=== PATIENT | male | born 1955 | race Caucasian/White ===

== ENCOUNTER → 2017-05-18 | Day surgery (SDC) | payer OTHER ==
[2017-05-07 11:05] VITALS: Ht 170.2 cm; Wt 77.3 kg
[~2017-05-18] VITALS: Ht 170.2 cm; Wt 77.3 kg
[~2017-05-18] MED LIST: BUPR-79 PO; SERT-234 PO
== END | disposition home or self-care (01) ==
LOC: EDSTATUS 09:00 → C.PAT 13:57
PROVIDERS: ATTEND Ophthalmology
DX: H26.9 Unspecified cataract (principal)

== ENCOUNTER → 2017-08-10 | Day surgery (SDC) | payer OTHER ==
[2017-07-16 09:57] VITALS: Ht 170.2 cm; Wt 77.3 kg
[~2017-08-10] VITALS: Ht 170.2 cm; Wt 77.3 kg
[~2017-08-10] MED LIST changes: +500ML BSS 0.3ML EPI 1:1000PF IRRIG ONE; +ACETAMINOPHEN 325 MG TAB PO PRN; +AMVISC PLUS 0.8ML SYRINGE INT OCU ONE; +ATROPINE SULFATE 0.1 MG/ML 5ML SYR IV PRN; +BRIMONIDINE TART 0.2% OP SOLN PER DROP CHARGE ONE; +BSS FLUSH ONE; +ENDOCOAT 0.85ML SYRINGE INT OCU ONE; +EpHEDrine SULFATE INJ 50 MG/ML AMP IV PRN; +EpINEphrine INJ 1MG/ML AMP 1 MG/ML AMP ONE; +LACTATED RINGER'S 1000ML 500 ML IV SCH; +LIDOCAINE 4% OP SOLN DROP CHARGE ONE; +LIDOCAINE 4% OP SOLN DROP CHARGE OPR SCH; +LIDOCAINE HCL 1% MPF 2 ML VIAL ONE; +MIDAZOLAM HCL 1 MG/ML 2ML VIAL ONE; +MOXIFLOXACIN OPH SOLN PER DROP CHARGE ONE; +ONDANSETRON INJ 2 MG/ML 2 ML VIAL IV PRN; +POVIDONE-IODINE OP SOLN 30 ML BTL ONE; +PROPARACAINE 0.5% OP SOLN PER DROP CHARGE OPR SCH; +TOBRAMYCIN/DEXAMETHASONE OPH OINT PER APPLN CHARGE ONE
[2017-08-10] MEDS: PHENYLEPHRINE HCL 2.5% OP SOLN PER DROP CHARGE OPR SCH ×2 (12:43→12:48)
[2017-08-10] MEDS: TROPICAMIDE 1% OP SOLN PER DROP CHARGE OPR SCH ×2 (12:44→12:49)
[2017-08-10] MEDS: CYCLOPENTOLATE HCL 1% OP SOLN PER DROP CHARGE OPR SCH ×2 (12:45→12:50)
[2017-08-10] MEDS: KETOROLAC 0.5% OP SOLN PER DROP CHARGE OPR SCH ×2 (12:46→12:51)
[2017-08-10] MEDS: MOXIFLOXACIN OPH SOLN PER DROP CHARGE OPR SCH ×2 (12:47→13:00)
--- NOTE | 2017-08-10 13:24 | History & Physical Bridge - [place] ---
H&P Re-Evaluation Bridge Note: I have examined the patient, reviewed the History & Physical and in the interval since the performance of the History & Physical I have noted the following changes of clinical significance: No changes noted
--- NOTE | 2017-08-10 14:23 | Discharge Instructions-SurgCtr ---
Discharge Instructions Date of Service Aug 10, 2017. Visit Reason for Visit: Cataract Right Eye Discharge Discharge Diagnosis / Problem: cataract right eye Discharge Goals Goal(s): Improve function Activity Recommendations Activity Limitations: per Instructions/Follow-up section Lifting Limitations: no more than 5 pounds Anesthesia . Post Anesthesia Instructions: If you have had General Anesthesia or IV Sedation: * Do not drive today. * Resume driving when surgeon permits. * Do not make important decisions or sign legal documents today. * Call surgeon for: 1. Temperature elevations greater than 101 degrees F. 2. Uncontrollable pain. 3. Excessive bleeding. 4. Persistent nausea and vomiting. 5. Medication intolerance (nausea, vomiting or rash). * For nausea and vomiting use only clear liquids such as: tea, soda, bouillon until nausea subsides, then gradually increase diet as tolerated. * If you have any concerns or questions, call your surgeon's office. If physician is unavailable and it is an emergency, call 911 or go to the nearest emergency room. . Instructions / Follow-Up Instructions / Follow-Up ACTIVITY RECOMMENDATIONS: * Light activities * You may walk outside, read, watch television. * Mild irritation and blurred vision are common for the first few days, redness around the white part of the eye is common. MEDICATIONS: Resume previous medications unless instructed otherwise by your surgeon. Eye drops (today and tomorrow): Polytrim - one drop in operative eye every 2 hours while awake Prednisolone 1% - one drop in operative eye every 2 hours while awake Prolensa - one drop operative eye 1 times daily SPECIAL CARE INSTRUCTIONS: * If any problems or concerns, please call Dr. Nava's office at . * Keep plastic shield taped over eye to sleep at night. * Keep plastic shield taped over eye except to administer eye drops. * Keep plastic shield on until office visit the following day. FOLLOW UP VISIT: Follow-up with Dr. Nava in the [place] office as scheduled. If not already scheduled, please call the office at . Diet Recommendations Home Diet: resume previous diet Procedures Procedures Performed: Right Cataract Phacoemulsification With Intraocular Lens Implant Pending Studies Studies pending at discharge: no Medical Emergencies . Who to Call and When: Medical Emergencies: If at any time you feel your situation is an emergency, please call 911 immediately. . Non-Emergent Contact Non-Emergency issues call your: Housekeeper . . "Provider Documentation" section prepared by Bull Nava. .
[2017-08-10 14:24] VITALS: TEMP 36.9
--- NOTE | 2017-08-10 14:25 | [facility] Operative Report ---
Operative Report Operative Date Aug 10, 2017. Pre-Operative Diagnosis Right Eye Cataract Post-Operative Diagnosis Same Procedure(s) Performed Right Cataract Phacoemulsification With Intraocular Lens Implant Surgeon Dr Nava Movie Machine Operator Surgeon(s) None Estimated Blood Loss 0ml Findings cataract right eye Fluids (cc crystalloids) see anesthesia record Specimens None Drains none Anesthesia local with sedation Complication(s) None Disposition Recovery Room / PACU Implants mx60 11.0 Indications decreased vision right eye Description of Procedure After informed consent was obtained in the holding area the patient was wheeled back to the operating room where cardiac monitoring leads and oxygen by nasal cannula was administered by Anesthesia. Gentle IV sedation was given, and the patient's right eye was prepped and draped in usual sterile fashion. A wire lid speculum was placed into the right eye and the operating microscope was swung into position. Using 0.12 forceps and a Supersharp blade a paracentesis port was made 2 o'clock hours away from the 12 o'clock position of the patient's right eye. 1% non-preserved Lidocaine was then injected into the anterior chamber for anesthesia. A 2.0 mm keratotome blade was then used to make a shelved clear corneal incision at the 12 o'clock position of the right eye. Amvisc was injected into the anterior chamber and a cystotome and Utrata forceps were used to perform a curvilinear capsulorrhexis. BSS on a hydrodissection cannula was used to hydrodissect the lens nucleus away from the capsular bag. The phacoemulsification handpiece was then used in a stop and chop fashion to remove the lens nucleus. The irrigation and aspiration handpiece was then used to remove the residual cortical material. Amvisc was injected into the capsular bag and anterior chamber and a Bausch & Lomb MX60 11.0 Diopter intraocular lens was injected into the capsular bag. Irrigation and aspiration handpiece was used to remove the residual viscoelastic material. The wounds were hydrated and noted to be watertight. The wire lid speculum was removed from the eye. Vigamox, Brimonidine, and TobraDex ointment were placed on the eye and it was shielded. It should be noted that EndoCoat was used extensively during the case to protect the cornea endothelium. DISPOSITION: The patient tolerated the procedure well and was wheeled to the post anesthesia care unit in stable condition. I attest to the content of the Intraoperative Record and any orders documented therein. Any exceptions are noted below. I attest to the content of the Intraoperative Record and any orders documented therein. Any exceptions are noted below.
--- NOTE | 2017-08-10 14:42 | Anesthesia Progress Nt - [facility] ---
Anesthesia Post Op Note Date & Time Aug 10, 2017 at 14:42 Vital Signs Pain Intensity: 0 Vital Signs Past 12 Hours Date Time Temp Pulse Resp B/P (MAP) Pulse Ox O2 Delivery O2 Flow Rate FiO2 08/10/17 14:24 36.9 93 14 146/98 (114) 97 Room Air 08/10/17 12:36 36.5 91 20 154/95 (114) 96 Room Air Notes Mental Status: alert / awake / arousable, participated in evaluation Pt Amnestic to Procedure: Yes Nausea / Vomiting: adequately controlled Pain: adequately controlled Airway Patency, RR, SpO2: stable & adequate BP & HR: stable & adequate Hydration State: stable & adequate Anesthetic Complications: no major complications apparent
[2017-08-10 14:43] VITALS: BP 136/88; PULSE 86; O2SAT 95
== END | disposition home or self-care (01) ==
LOC: X.SURG 12:06
PROVIDERS: ATTEND Ophthalmology
DX: H25.11 Age-related nuclear cataract, right eye (principal); F32.9 Major depressive disorder, single episode, unspecified; Z83.3 Family history of diabetes mellitus

== ENCOUNTER → 2017-08-24 | Day surgery (SDC) | payer OTHER ==
[2017-08-19 14:02] VITALS: Ht 170.2 cm; Wt 77.3 kg
[~2017-08-24] VITALS: Ht 170.2 cm; Wt 77.3 kg
[~2017-08-24] MED LIST changes: +LIDOCAINE 4% OP SOLN DROP CHARGE OPL SCH; -LIDOCAINE 4% OP SOLN DROP CHARGE OPR SCH; -ONDANSETRON INJ 2 MG/ML 2 ML VIAL IV PRN; +PROPARACAINE 0.5% OP SOLN PER DROP CHARGE OPL SCH; -PROPARACAINE 0.5% OP SOLN PER DROP CHARGE OPR SCH
[2017-08-24] MEDS: PHENYLEPHRINE HCL 2.5% OP SOLN PER DROP CHARGE OPL SCH ×2 (11:14→11:22)
[2017-08-24] MEDS: TROPICAMIDE 1% OP SOLN PER DROP CHARGE OPL SCH ×2 (11:15→11:23)
[2017-08-24] MEDS: CYCLOPENTOLATE HCL 1% OP SOLN PER DROP CHARGE OPL SCH ×2 (11:16→11:25)
[2017-08-24] MEDS: KETOROLAC 0.5% OP SOLN PER DROP CHARGE OPL SCH ×2 (11:17→11:26)
[2017-08-24] MEDS: MOXIFLOXACIN OPH SOLN PER DROP CHARGE OPL SCH ×2 (11:18→11:27)
[2017-08-24 12:39] VITALS: TEMP 37.1
--- NOTE | 2017-08-24 12:39 | Discharge Instructions-SurgCtr ---
Discharge Instructions Date of Service Aug 24, 2017. Visit Reason for Visit: Left Cataract Discharge Discharge Diagnosis / Problem: cataract left eye Discharge Goals Goal(s): Improve function Activity Recommendations Activity Limitations: per Instructions/Follow-up section Lifting Limitations: no more than 5 pounds Anesthesia . Post Anesthesia Instructions: If you have had General Anesthesia or IV Sedation: * Do not drive today. * Resume driving when surgeon permits. * Do not make important decisions or sign legal documents today. * Call surgeon for: 1. Temperature elevations greater than 101 degrees F. 2. Uncontrollable pain. 3. Excessive bleeding. 4. Persistent nausea and vomiting. 5. Medication intolerance (nausea, vomiting or rash). * For nausea and vomiting use only clear liquids such as: tea, soda, bouillon until nausea subsides, then gradually increase diet as tolerated. * If you have any concerns or questions, call your surgeon's office. If physician is unavailable and it is an emergency, call 911 or go to the nearest emergency room. . Instructions / Follow-Up Instructions / Follow-Up ACTIVITY RECOMMENDATIONS: * Light activities * You may walk outside, read, watch television. * Mild irritation and blurred vision are common for the first few days, redness around the white part of the eye is common. MEDICATIONS: Resume previous medications unless instructed otherwise by your surgeon. Eye drops (today and tomorrow): Polytrim - one drop in operative eye every 2 hours while awake Prednisolone 1% - one drop in operative eye every 2 hours while awake Prolensa - one drop operative eye 1 times daily SPECIAL CARE INSTRUCTIONS: * If any problems or concerns, please call Dr. Nava's office at . * Keep plastic shield taped over eye to sleep at night. * Keep plastic shield taped over eye except to administer eye drops. * Keep plastic shield on until office visit the following day. FOLLOW UP VISIT: Follow-up with Dr. Nava in the [place] office as scheduled. If not already scheduled, please call the office at . Diet Recommendations Home Diet: resume previous diet Procedures Procedures Performed: Left Cataract Phacoemulsification With Intraocular Lens Implant Pending Studies Studies pending at discharge: no Medical Emergencies . Who to Call and When: Medical Emergencies: If at any time you feel your situation is an emergency, please call 911 immediately. . Non-Emergent Contact Non-Emergency issues call your: [employer] . . "Provider Documentation" section prepared by Bull Nava. .
--- NOTE | 2017-08-24 12:41 | [facility] Operative Report ---
Operative Report Operative Date Aug 24, 2017. Pre-Operative Diagnosis Cataract Left Eye Post-Operative Diagnosis same as preop Procedure(s) Performed Left Cataract Phacoemulsification With Intraocular Lens Implant Surgeon Dr. Nava Industrial Roof Plumber Surgeon(s) none Estimated Blood Loss 0ml Findings cataract left eye Fluids (cc crystalloids) see anesthesia record Specimens none per surgeon Drains none Anesthesia local with sedation Complication(s) None Disposition Recovery Room / PACU Implants mx60 11.5 Indications decreased vision left eye Description of Procedure After informed consent was obtained in the holding area the patient was wheeled back to the operating room where cardiac monitoring leads and oxygen by nasal cannula was administered by Anesthesia. Gentle IV sedation was given, and the patient's left eye was prepped and draped in usual sterile fashion. A wire lid speculum was placed into the left eye and the operating microscope was swung into position. Using 0.12 forceps and a Supersharp blade a paracentesis port was made 2 o'clock hours away from the 1 o'clock position of the patient's left eye. 1% non-preserved Lidocaine was then injected into the anterior chamber for anesthesia. A 2.02 mm keratotome blade was then used to make a shelved clear corneal incision at the 1 o'clock position of the left eye. Amvisc was injected into the anterior chamber and a cystotome and Utrata forceps were used to perform a curvilinear capsulorrhexis. BSS on a hydrodissection cannula was used to hydrodissect the lens nucleus away from the capsular bag. The phacoemulsification handpiece was then used in a stop and chop fashion to remove the lens nucleus. The irrigation and aspiration handpiece was then used to remove the residual cortical material. Amvisc was injected into the capsular bag and anterior chamber and a Bausch & Lomb MX60 11.5 Diopter intraocular lens was injected into the capsular bag. Irrigation and aspiration handpiece was used to remove the residual viscoelastic material. The wounds were hydrated and noted to be watertight. The wire lid speculum was removed from the eye. Vigamox, Brimonidine, and TobraDex ointment were placed on the eye and it was shielded. It should be noted that EndoCoat was used extensively during the case to protect the cornea endothelium. DISPOSITION: The patient tolerated the procedure well and was wheeled to the post anesthesia care unit in stable condition. I attest to the content of the Intraoperative Record and any orders documented therein. Any exceptions are noted below. I attest to the content of the Intraoperative Record and any orders documented therein. Any exceptions are noted below.
--- NOTE | 2017-08-24 12:56 | Anesthesia Progress Nt - [facility] ---
Anesthesia Post Op Note Date & Time Aug 24, 2017 at 12:56 Vital Signs Pain Intensity: 0 Vital Signs Past 12 Hours Date Time Temp Pulse Resp B/P (MAP) Pulse Ox O2 Delivery O2 Flow Rate FiO2 08/24/17 12:39 37.1 80 18 151/94 (113) 95 Room Air 08/24/17 11:03 36.9 87 18 165/97 (119) 97 Room Air Notes Mental Status: alert / awake / arousable, participated in evaluation Pt Amnestic to Procedure: Yes Nausea / Vomiting: adequately controlled Pain: adequately controlled Airway Patency, RR, SpO2: stable & adequate BP & HR: stable & adequate Hydration State: stable & adequate Anesthetic Complications: no major complications apparent
[2017-08-24 13:04] VITALS: BP 135/90; PULSE 83; O2SAT 96
== END | disposition home or self-care (01) ==
LOC: X.SURG 10:53
PROVIDERS: ATTEND Ophthalmology
DX: H26.9 Unspecified cataract (principal); F41.9 Anxiety disorder, unspecified; F32.9 Major depressive disorder, single episode, unspecified